=== PATIENT | male | born 1945 ===

== ENCOUNTER 2018-09-22 18:08 | Emergency (ER) | payer SELFPAY ==
[2018-09-22 18:45] LABS: BASO # 0.1 K/uL (0.0-0.2); BASO % 1.1 % (0.0-2.0); EOS # 0.4 K/uL (0.0-0.7); EOS % 2.9 % (0.0-4.0); HEMOGLOBIN 16.4 g/dL (12.0-18.0); LYMPH # 5.2 K/uL (1.0-4.3); LYMPH % 41.5 % (20.0-40.0); MEAN CELL VOLUME 97.2 fl (80.0-94.0); MEAN CORPUSCULAR HEMOGLOBIN 33.1 pg (27.0-31.0); MEAN CORPUSCULAR HGB CONC 34.1 g/dL (33.0-37.0); MEAN PLATELET VOLUME 9.4 fl (7.2-11.7); MONO % 7.7 % (0.0-10.0); NEUT # 5.9 K/uL (1.8-7.0); NEUT % 46.8 % (50.0-75.0); RBC 4.94 Mil/uL (4.40-5.90); RED CELL DISTRIBUTION WIDTH 13.5 % (11.5-14.5); WHITE BLOOD COUNT 12.6 K/uL (4.8-10.8)
[2018-09-22 18:51] LABS: ALB/GLOB RATIO 1.1 (1.0-2.1); ALBUMIN 4.6 g/dL (3.5-5.0); ALT/SGPT 103 U/L (21-72); AST/SGOT 120 U/L (17-59); BLOOD UREA NITROGEN 14 mg/dl (9-20); CALCIUM 9.9 mg/dL (8.4-10.2); GFR NON-AFRICAN AMERICAN > 60
--- NOTE | 2018-09-22 18:59 | ED PDOC ---
HPI: Psych/Substance Abuse Time Seen by Provider: 09/22/18 18:18 Chief Complaint (Nursing): Alcohol Ingestion History Per: Patient, EMS Additional Complaint(s): Pt. brought in by EMS for ETOH intoxication. Admits to drinking alcohol. Offers no complaints. Past Medical History Reviewed: Historical Data, Nursing Documentation, Vital Signs Vital Signs: Last Vital Signs Temp 98.2 F 09/22/18 18:09 Pulse 100 H 09/22/18 18:09 Resp 18 09/22/18 18:09 BP 135/90 09/22/18 18:09 Pulse Ox 99 09/22/18 18:09 - Allergies Allergies/Adverse Reactions: Allergies Allergy/AdvReac Type Severity Reaction Status Date / Time No Known Allergies Allergy Verified 09/22/18 18:09 Review of Systems ROS Statement: Except As Marked, All Systems Reviewed And Found Negative Physical Exam - Reviewed Nursing Documentation Reviewed: Yes Vital Signs Reviewed: Yes - Physical Exam Appears: Positive for: Well, Non-toxic, No Acute Distress Head Exam: Positive for: ATRAUMATIC, NORMAL INSPECTION, NORMOCEPHALIC Skin: Positive for: Normal Color, Warm. Negative for: Rash Eye Exam: Positive for: EOMI, Normal appearance, PERRL ENT: Positive for: Normal ENT Inspection Neck: Positive for: Normal, Painless ROM Cardiovascular/Chest: Positive for: Regular Rate, Rhythm Respiratory: Positive for: CNT, Normal Breath Sounds Gastrointestinal/Abdominal: Positive for: Normal Exam, Soft. Negative for: Tenderness Back: Positive for: Normal Inspection. Negative for: L CVA Tenderness, R CVA Tenderness, Vertebral Tenderness Extremity: Positive for: Normal ROM Neurologic/Psych: Positive for: Alert, Oriented (x3), Gait (unsteady), Other (slurred speech, AOB). Negative for: Aphasia, Facial Droop - Laboratory Results Result Diagrams: 09/22/18 18:37 09/22/18 18:37 - ECG O2 Sat by Pulse Oximetry: 99 - Progress ED Course And Treament: Labs ordered. Pt. attempting to leave ED. After multiple attempts to try to keep pt in stretcher decision was made to place pt. on restraints and to medicate pt. Haldol 5mg IM ordered. Restraints ordered. Disposition - Clinical Impression Clinical Impression: Alcohol intoxication - Patient ED Disposition Is Patient to be Admitted: Transfer of Care (Signed out to Juan [facility] pending sobriety) - Disposition Disposition Time: 20:00 Condition: STABLE
[2018-09-22 20:00] LABS: BARBITURATES, UR NEGATIVE (NEGATIVE); BENZODIAZEPINES, UR NEGATIVE (NEGATIVE); OPIATES, UR NEGATIVE (NEGATIVE); PHENCYCLIDINE, UR NEGATIVE (NEGATIVE)
--- NOTE | 2018-09-22 21:55 | ED PDOC ---
- Laboratory Results Result Diagrams: 09/22/18 18:37 09/22/18 18:37 - ECG O2 Sat by Pulse Oximetry: 99 - Progress ED Course And Treament: Patient noted clinically sober and with steady gait. Disposition - Clinical Impression Clinical Impression: Alcohol intoxication - POA Present On Arrival: None - Disposition Referrals: [facility] [place] [facility] [Outside] Disposition: Routine/Home Disposition Time: 21:55 Condition: STABLE Instructions: Alcohol Abuse and Alcoholism (DC)
[2018-09-22 22:04] VITALS: BP 146/74; PULSE 82; RESP 16; TEMP 98; O2SAT 100
== END 2018-09-22 22:10 | disposition home or self-care (01) ==
LOC: H.ER 18:08
DX: F10.129 Alcohol abuse with intoxication, unspecified (principal); Y90.7 Blood alcohol level of 200-239 mg/100 ml
CPT/HCPCS: 80053; 85025; 96372; 99285; G0480; J1630

== ENCOUNTER 2019-01-16 19:13 | Emergency (ER) | payer SELFPAY ==
[2019-01-16 19:39] VITALS: RESP 18; TEMP 97.8
--- NOTE | 2019-01-16 19:50 | ED PDOC ---
HPI: Psych/Substance Abuse Time Seen by Provider: 01/16/19 19:43 Chief Complaint (Nursing): Alcohol Ingestion History Per: Patient Additional Complaint(s): Brought by police after being found in street with possible ETOH ingestion. Pt states his knees gave out but denies other injury. Pt denies ETOH ingestion. No LOC or dizziness. Past Medical History Vital Signs: Last Vital Signs Temp 97.8 F 01/16/19 19:30 Pulse 105 H 01/16/19 19:30 Resp 18 01/16/19 19:30 BP 111/57 L 01/16/19 19:30 Pulse Ox 92 L 01/16/19 19:30 - Medical History PMH: No Chronic Diseases - Family History Family History: States: Unknown Family Hx - Allergies Allergies/Adverse Reactions: Allergies Allergy/AdvReac Type Severity Reaction Status Date / Time No Known Allergies Allergy Verified 01/16/19 19:38 Review of Systems ROS Statement: Except As Marked, All Systems Reviewed And Found Negative Physical Exam - Reviewed Nursing Documentation Reviewed: Yes Vital Signs Reviewed: Yes - Physical Exam Appears: Positive for: Non-toxic, No Acute Distress Head Exam: Positive for: ATRAUMATIC, NORMAL INSPECTION, NORMOCEPHALIC Skin: Positive for: Normal Color, Warm, DRY Eye Exam: Positive for: EOMI, Normal appearance, PERRL ENT: Positive for: Normal ENT Inspection Neck: Positive for: Normal, Painless ROM Cardiovascular/Chest: Positive for: Regular Rate, Rhythm Respiratory: Positive for: CNT, Normal Breath Sounds Gastrointestinal/Abdominal: Positive for: Normal Exam, Soft Back: Positive for: Normal Inspection Extremity: Positive for: Normal ROM Neurologic/Psych: Positive for: Alert, Oriented - ECG O2 Sat by Pulse Oximetry: 92 - Progress Re-evaluation Time: 21:38 Condition: Improved (Awake alert oriented x3 No focal neuro deficts) Disposition - Clinical Impression Clinical Impression: Alcohol abuse, Alcohol intoxication - Patient ED Disposition Is Patient to be Admitted: No - Disposition Disposition Time: 21:38 Condition: FAIR Instructions: Alcohol Abuse and Alcoholism (DC) Forms: REach (Macedonian)
[2019-01-16 22:18] VITALS: BP 115/65; PULSE 90; O2SAT 95
== END 2019-01-16 22:10 | disposition home or self-care (01) ==
LOC: H.ER 19:13
DX: F10.129 Alcohol abuse with intoxication, unspecified (principal)
CPT/HCPCS: 82948; 99283; G0480